=== PATIENT | male | born 1960 | race Caucasian/White ===

== ENCOUNTER 2022-11-09 09:59 | Outpatient (AMB) | payer OTHER, SELFPAY ==
--- NOTE | 2022-11-09 10:01 | A.SPINEOV_ITS ---
Intake Intake Visit Reasons: cervical spinal stenosis Intake Note: Mr. Argueta is here today c/o neck pain. MRI done @ [facility]. [employer] Required: No Assessment & Plan Assessment & Plan (1) Cervical radiculopathy: Code(s): M54.12 - Radiculopathy, cervical region Plan Dear Alfred, Thank you for referring Mr Argueta to our office today. He is a very nice 62-year-old gentleman presents to the office today for evaluation of bilateral arm pain and neck pain in the setting of previous fusion at C5-6 and C6-7. He h ad originally had his 1st neck surgery in [address] Luis maxwell for neck pain and after that surgery he did remarkably well. He began experiencing neck pain and about a year later and underwent a C6-7 anterior cervical fusion at that time and unfortunately it did not help his neck pain and gave him pain going down his arm into both of his hands encompassing his whole palm. This is not a symptom that he had before surgery. It is very uncomfortable and keeps him from sleeping. He was seen at the surgeon's office multiple times and underwent physical therapy, cortisone injections as well as numerous rounds of medication trials and nothing seems to help. He does smoke marijuana regularly to try to help with the pain and discomfort. He is very frustrated with the amount of discomfort he has in and has had a hard time getting back to work because of it. PMH: Anterior cervical fusion as outlined above, he has a rotator cuff issue but other than that he is a little bit of hypertension but is otherwise healthy Social hx: Smokes marijuana but does not smoke cigarettes or use any alcohol regularly Medications: Ibuprofen, lisinopril, sertraline, cyclobenzaprine Allergies: None Physical exam: He has weakness of his right hand as well as read weakness of his right triceps which I would rate as 4-5. Reflexes are 3+ and symmetric, no Luis sign. Gait is normal. Imaging review: Cervical MRI done at [facility] shows evidence of postsurgical changes at C5-6 and C6-7, at he has x-ray showing solid fusion at both of these levels and adequate placement of his hardware. I do not see any residual compression at either of these levels. There is some mild foraminal narrowing above at C3-4 C4-5 levels but nothing that rises to the level of being severe would explain his pain. Impression: 62-year-old gentleman presents with history of ACDF C5-6 and C6-7, who developed a severe radiculopathy of both arms after his 2nd surgery without a clear explanation on his imaging and did not respond to any kind of conservative management including PT and cortisone injections. He is very frustrated because he did not have these symptoms before the surgery. I explained to him that it can be a side effect of surgery to develop new nerve pain that often times does not lend itself well to a specific explanation. I do not think further surgery is going to help him as the nerves seem adequately decompressed. His symptoms do not fit with the other dermatomal distributions higher up where he has some mild foraminal narrowing. I would not expect that to explain his pain anyway. I am going to send him for evaluation of a cervical spinal cord stimulator with Dr. Corrigan and see if he thinks it would be a good fit for him. Thank you for allowing us to care for your patient. The total time spent with this visit with this patient was 45 minutes reviewing history, physical exam, cervical spine imaging review, and implementation of treatment plan or further diagnostic testing Du Peraza MD,PhD [facility] Orders: Referrals Physiatry Referral M54.12 - Radiculopathy, cervical region Coding Level of Care Code New Pt Level 4 (12100) Diagnoses Cervical radiculopathy M54.12
== END 2022-11-09 11:03 | disposition home or self-care (01) ==
PROVIDERS: Referring Provider Physician Assistant; Visit Provider Physician Assistant
DX: M54.12 Radiculopathy, cervical region (principal)
CPT/HCPCS: 99204

== ENCOUNTER → 2022-11-09 09:59 | Outpatient (BNVA) | payer OTHER, SELFPAY | PROVIDERS: Visit Provider Physician Assistant ==

== ENCOUNTER 2022-11-23 13:09 | Outpatient (AMB) | payer OTHER, SELFPAY ==
[2022-11-23 13:22] VITALS: BP 164/99; PULSE 94; RESP 14; O2SAT 98; BMI 23.0
--- NOTE | 2022-11-23 13:22 | MHC.OFFVIS ---
Intake Vital Signs 11/23/22 13:22 Height 6 ft 2 in Weight 179 lb BMI 23.0 BP 164/99 H Blood Pressure Location Lt brachial Position Sitting Respiration 14 Pulse 94 Pulse Source Pulse Oximeter Pulse Oximetry (%) 98 Oxygen Delivery Method Room Air Intake Visit Reasons: eval for scs Allergies No Known Allergies Allergy (Verified 11/23/22 13:23) Medication List - Last Reconciled 11/23/22 by Julissa Garcia LPN albuterol sulfate 90 mcg/actuation 2 puffs inhalation Q4H PRN lisinopril 30 mg PO DAILY sertraline 100 mg PO DAILY HPI eval for scs HPI Details 62-year-old male who presents today to the office for an evaluation of SCS. He had C5-6 and C6-7 fusions. The patient had his first neck surgery in [address] Smith for neck pain and did remarkably well. He began experiencing neck pain and, about a year later, underwent a C6-7 anterior cervical fusion with no relief for his neck pain. He states that his pain started immediately after the second surgery.? The patient reports bilateral arm pain and neck pain. He rates his pain at 4-5/10 in intensity, which is constant and increased to 8/10 in intensity even with the slightest movements. He also reports muscle tightness, which is bothersome. He has previously undergone Botox injections for dystonic muscles without any relief. His pain radiates down to his arm and into both of his hands, encompassing his whole palm (R>L). He describes his radiating pain as sharp, shooting, and pulsating down from his arm to his palm. He is unable to sleep normally or do his daily activities. His pain is worse with movement. He was seen at the surgeon's office multiple times and underwent physical therapy, cortisone injections, Botox therapy, and numerous rounds of medication trials, but nothing seemed to help. He does smoke marijuana regularly to try to help with the pain and discomfort. Review of Systems Const All systems reviewed & are unremarkable except as noted in HPI and below Physical Exam Vital Signs: Last Vital Signs Pulse 94 11/23/22 13:22 Resp 14 11/23/22 13:22 BP 164/99 H 11/23/22 13:22 Pulse Ox 98 11/23/22 13:22 Oxygen Delivery Method Room Air 11/23/22 13:22 BMI result Body Mass Index 23.0 General: Appears afebrile. Alert and oriented. Mood and affect appropriate. Follows and participates in conversation appropriately. Respiratory effort is unlabored. Able to transition from sit to stand unassisted. Ambulates with bilaterally normal heel strike and toe off. Cervical range of motion reproduces pain in the neck and shoulders. Small motions seem to precipitate sharp episodic pain. Results Reviewed Results Reviewed: No imaging is available for review. Assessment & Plan Assessment & Plan (1) Postlaminectomy syndrome of cervical region: Code(s): M96.1 - Postlaminectomy syndrome, not elsewhere classified Plan We had an extensive discussion about starting with cervical spinal cord stimulator as a possible treatment option. I will place a referral for psychology clearance. Once we have received psychology clearance, we will plan for trial of cervical spinal cord stimulator with a [employer] device. His already has a lumbar SCS implant, which is also a [employer] device. The patient will receive a call from [facility] for the psychology assessment following which we will schedule him for the trial. Scribed for Dr. Corrigan by Jesus Schaffer, medical laboratory assistant, on 11/23/2022. I, Dr. Corrigan, have personally reviewed and agree with the information entered by the scribe. Coding Level of Care Code New Pt Level 4 (33342) Diagnoses Postlaminectomy syndrome of cervical region M96.1
== END 2022-11-23 14:03 | disposition home or self-care (01) ==
PROVIDERS: Visit Provider Internal Medicine
DX: M96.1 Postlaminectomy syndrome, not elsewhere classified (principal)
CPT/HCPCS: 99204

== ENCOUNTER → 2022-11-23 13:09 | Outpatient (BNVA) | payer OTHER, SELFPAY | PROVIDERS: Visit Provider Internal Medicine ==